=== PATIENT | male | born 2000 | race Caucasian/White ===

== ENCOUNTER 2023-05-11 09:42 | Emergency (ER) | payer MEDICAID ==
[~2023-05-11] VITALS: Ht 160 cm; Wt 81.6 kg
[2023-05-11 09:52] VITALS: BP 127/69; PULSE 74; RESP 16; TEMP 98.1; O2SAT 98
[2023-05-11] MEDS ORDERED: LORA1T1237 PO (10:57)
== END 2023-05-11 11:10 | disposition home or self-care (01) ==
LOC: MED 09:42
DX: J20.9 Acute bronchitis, unspecified (principal); R09.82 Postnasal drip; Z79.899 Other long term (current) drug therapy
CPT/HCPCS: 99282

== ENCOUNTER 2024-01-01 18:05 | Emergency (ER) | payer SELFPAY ==
[~2024-01-01] VITALS: Ht 160 cm; Wt 83.9 kg
[~2024-01-01 18:05] MED LIST: LORA1T1237 PO
[2024-01-01 18:15] VITALS: BP 131/83; PULSE 90; RESP 22; TEMP 98.2; O2SAT 98
[2024-01-01] MEDS: LIDOCAINE 5% 1 EA PATCH TP ONE (18:41)
[2024-01-01] MEDS: KETOROLAC 30 MG/ML VIAL IM ONE (18:41)
[2024-01-01] MEDS ORDERED: ALUMINUM HYD/MAG/SIMETHICONE 30 ML UDC ONE (20:01)
[2024-01-01] MEDS ORDERED: DICYCLOMINE HCL LIQUID 10 MG/5 ML UDC ONE (20:01)
[2024-01-01 20:06] LABS: BASOPHILS # (AUTO) 0.1 K/uL (0.00-0.22); BASOPHILS % (AUTO) 0.6 % (0.0-2.0); EOSINOPHILS # (AUTO) 0.3 K/uL (0-0.4); EOSINOPHILS % (AUTO) 3.4 % (0.0-4.0); HEMATOCRIT 46.1 % (36-52); HEMOGLOBIN 15.5 g/dL (12.0-18.0); LYMPHOCYTES # (AUTO) 2.2 K/uL (2.0-11.5); LYMPHOCYTES % (AUTO) 25.5 % (20.5-51.1); MEAN CORPUSCULAR HEMOGLOBIN 29 pg (27-31); MEAN CORPUSCULAR HGB CONC 34 g/dL (33-37); MEAN CORPUSCULAR VOLUME 85.1 fL (80-94); MONOCYTES # (AUTO) 0.8 K/uL (0.8-1.0); MONOCYTES % (AUTO) 8.8 % (1.7-9.3); NEUTROPHILS # (AUTO) 5.4 K/uL (1.8-7.7); NEUTROPHILS % (AUTO) 61.7 % (42.2-75.2); PLATELET COUNT (AUTO) 210 K/uL (140-450); RED BLOOD CELL COUNT(AUTO) 5.42 MIL/uL (4.20-6.10); RED CELL DISTRIBUTION WIDTH 13.8 % (11.6-13.7); WHITE BLOOD COUNT (AUTO) 8.8 K/uL (4.8-10.8)
[2024-01-01] MEDS: DICYCLOMINE HCL LIQUID 20 MG, ALUMINUM HYD/MAG/SIMETHICONE 30 ML, LIDOCAINE VISCOUS 2% ... PO ONE (20:09)
[2024-01-01 20:15] LABS: ANION GAP 11.8 (8-16); CALCIUM 8.8 mg/dL (8.5-10.1); CARBON DIOXIDE 29.6 mmol/L (21-32); CREATININE 0.9 mg/dL (0.6-1.3); POTASSIUM 3.4 mmol/L (3.5-5.1)
[2024-01-01] MEDS ORDERED: FAMO-90 PO (21:06)
[2024-01-01 21:15] VITALS: BP 112/68; PULSE 75; RESP 18; TEMP 98.2; O2SAT 100
== END 2024-01-01 21:20 | disposition home or self-care (01) ==
LOC: MED 18:05
DX: R10.9 Unspecified abdominal pain (principal); R07.81 Pleurodynia; Z79.899 Other long term (current) drug therapy
CPT/HCPCS: 36415; 71101; 76705; 80048; 83690; 85025; 96372; 99285; J1885; Q0092